=== PATIENT | female | born 1970 | race Caucasian/White ===

== ENCOUNTER → 2016-06-29 | Outpatient (CLI) | payer MEDICARE, OTHER ==
[~2016-06-29] MED LIST: CELEXA20 MG PO; CELEXA40 MG PO; DETROL LA4 MG PO; FISH OIL 1,0001 EACH PO; HUMALOG100 UNIT/1 SQ; HUMULIN N100 UNIT/2 SQ; LEVEMIR FL100 UNIT/1 SQ; LEVEMIR100 UNIT/1 SQ; LIPITOR TAB 1010 MG PO; LIPITOR10 MG PO; LORCET PLUS 7.1 EACH PO; LORTAB 7.5-3251 EACH PO; MYRBETRIQ25 MG PO; NEURONTIN 400400 MG PO; NEURONTIN400 MG PO; PRILOSEC OTC20 MG PO; PROAIR HFA8.5 GM INH; PROVENTIL HFA 61 INH INH; TOVIAZ8 MG PO; ZOFRAN ODT 4 MG4 MG SL; ZOFRAN4 MG PO
== END ==
LOC: CT 06-16 14:00
DX: J32.8 Other chronic sinusitis (principal)
CPT/HCPCS: 70486

== ENCOUNTER 2020-02-29 20:36 | Emergency (ER) | payer MEDICARE, OTHER ==
[~2020-02-29 20:36] MED LIST changes: +BACTRIM DS TAB1 EACH PO; +DIFLUCAN200 MG PO; +FARXIGA10 MG PO; +FENOFIBRATE145 MG PO; +KEFLEX CAP 500500 MG PO; +KEFLEX500 MG PO; +KLONOPIN TAB 00.5 MG PO; +LIPITOR TAB 2020 MG PO; +MYRBETRIQ50 MG PO; -NEURONTIN 400400 MG PO; +NEURONTIN800 MG PO; +PHENERGAN 25 MG25 M1 PO; +PYRIDIUM200 MG PO; +SINGULAIR10 MG PO; +STELAZINE PO; +TRESIBA FL100 UNIT/1 SQ; +VENTOLIN HFA 66.7 GM INH
[2020-02-29 21:15] LABS: HEMOGLOBIN 14.1 gm/dl (12.3-15.3); RED BLOOD COUNT 5.29 M/UL (4.00-5.10); WHITE BLOOD COUNT 11.6 K/UL (4.5-11.0)
[2020-02-29 21:37] LABS: BUN/CREATININE RATIO 20 (0-10)
[2020-03-01] MEDS ORDERED: NITROSTAT0.4 MG SL (00:52)
[2020-03-01] MEDS ORDERED: ECOTRIN81 MG PO (00:52)
[2020-06-02] MEDS ORDERED: ZOCOR20 MG PO (11:56)
[2020-06-02] MEDS ORDERED: ONDANSETRON HCL8 MG PO (12:02)
[2020-06-02] MEDS ORDERED: ABILIFY2 MG PO (12:02)
[2020-06-02] MEDS ORDERED: OXYBUTYNIN CHLOR5 MG PO (12:03)
[2020-06-02] MEDS ORDERED: GOODY'S EX-STR1 EAC1 PO (12:03)
[2020-06-02] MEDS ORDERED: LISINOPRIL10 MG PO (12:10)
== END 2020-03-01 01:10 | disposition home or self-care (01) ==
LOC: ER1 20:36
PROVIDERS: Family Medicine
DX: R07.9 Chest pain, unspecified (principal); I10 Essential (primary) hypertension; E11.9 Type 2 diabetes mellitus without complications; Z88.5 Allergy status to narcotic agent; Z91.012 Allergy to eggs; Z88.1 Allergy status to other antibiotic agents
CPT/HCPCS: 71046; 80053; 82550; 82553; 83874; 84484; 85025; 85379; 93005; 99284

== ENCOUNTER → 2020-06-02 | Outpatient (CLI) | payer MEDICARE, OTHER ==
[~2020-06-02] MED LIST changes: +ABILIFY2 MG PO; +ECOTRIN81 MG PO; +GOODY'S EX-STR1 EAC1 PO; +LISINOPRIL10 MG PO; +NITROSTAT0.4 MG SL; +ONDANSETRON HCL8 MG PO; +OXYBUTYNIN CHLOR5 MG PO; +ZOCOR20 MG PO
[2020-06-02 12:08] LABS: RED BLOOD COUNT 5.14 M/UL (4.00-5.10); WHITE BLOOD COUNT 12.1 K/UL (4.5-11.0)
[2020-06-02 12:34] LABS: BUN/CREATININE RATIO 29 (0-10)
== END ==
LOC: OPSV2 10:30
PROVIDERS: Anesthesiology; Obstetrics & Gynecology
DX: Z01.812 Encounter for preprocedural laboratory examination (principal); N39.41 Urge incontinence
CPT/HCPCS: 80048; 81001; 83036; 85025; 93005

== ENCOUNTER → 2020-06-04 | Day surgery (SDC) | payer MEDICARE, OTHER | END | disposition home or self-care (01) | LOC: OR 06:25 | DX: N32.89 Other specified disorders of bladder (principal); E11.65 Type 2 diabetes mellitus with hyperglycemia; F17.219 Nicotine dependence, cigarettes, with unspecified nicotine-induced disorders; K21.9 Gastro-esophageal reflux disease without esophagitis; J45.909 Unspecified asthma, uncomplicated; E66.01 Morbid (severe) obesity due to excess calories; M79.7 Fibromyalgia; Z80.42 Family history of malignant neoplasm of prostate; Z88.6 Allergy status to analgesic agent; Z88.8 Allergy status to other drugs, medicaments and biological substances; Z80.0 Family history of malignant neoplasm of digestive organs; Z80.49 Family history of malignant neoplasm of other genital organs; Z80.1 Family history of malignant neoplasm of trachea, bronchus and lung; Z68.34 Body mass index [BMI] 34.0-34.9, adult; Z82.49 Family history of ischemic heart disease and other diseases of the circulatory system | CPT/HCPCS: 82962; 84703; C1769; J0585; J1100; J2001; J2250; J2405; J2704; J2795; J3010; J7120 ==

== ENCOUNTER 2021-02-27 14:24 | Emergency (ER) | payer MEDICARE, OTHER ==
[2021-02-27 15:15] LABS: HEMOGLOBIN 17.2 gm/dl (12.3-15.3); RED BLOOD COUNT 6.06 M/UL (4.00-5.10); WHITE BLOOD COUNT 12.4 K/UL (4.5-11.0)
[2021-02-27 16:03] LABS: BUN/CREATININE RATIO 19 (0-10)
[2021-02-27] MEDS ORDERED: PERCOCET 7.5-31 EACH PO (20:10)
[2021-02-27] MEDS ORDERED: PHENERGAN 25 MG25 M1 PO (20:10)
== END 2021-02-27 20:20 | disposition home or self-care (01) ==
LOC: ER1 14:24
PROVIDERS: Physician Assistant Medical
DX: K85.90 Acute pancreatitis without necrosis or infection, unspecified (principal); F17.210 Nicotine dependence, cigarettes, uncomplicated; E11.9 Type 2 diabetes mellitus without complications; J45.909 Unspecified asthma, uncomplicated; Z79.4 Long term (current) use of insulin; Z20.822 Contact with and (suspected) exposure to COVID-19; Z88.5 Allergy status to narcotic agent
CPT/HCPCS: 80053; 81001; 83690; 85025; 96374; 96375; 96376; 99284; J1170; J2405; Q9967; U0002

== ENCOUNTER → 2021-06-24 | Outpatient (CLI) | payer MEDICARE, OTHER ==
[~2021-06-24] MED LIST changes: +PERCOCET 7.5-31 EACH PO
== END ==
LOC: US 08:07
DX: K76.0 Fatty (change of) liver, not elsewhere classified (principal)
CPT/HCPCS: 36415; 76705; 80061

== ENCOUNTER → 2021-07-06 | Outpatient (CLI) | payer MEDICARE, OTHER | LOC: MRI 13:27 | DX: K86.1 Other chronic pancreatitis (principal); K86.89 Other specified diseases of pancreas | CPT/HCPCS: 36415; 74183; 82565; 84520; A9577 ==